=== PATIENT | male | born 1940 | race Caucasian/White ===

== ENCOUNTER 2016-07-30 11:24 | Day surgery (SDC) | payer OTHER ==
[2016-07-26 10:40] VITALS: BMI 25.2
[2016-07-30 13:43] VITALS: TEMP 97.7
[2016-07-30 13:46] VITALS: BP 104/65; PULSE 52
--- NOTE | 2016-07-31 12:16 | PATH ---
Surgical Pathology Report Patient Name: DENITA ALATORRE [facility]. Rec. #: [id number] /Age/Gender: 1940 (Age: 75) / M Account: [id number] Location: [facility] Taken: 07/30/2016 Received: 07/30/2016 Reported: 07/31/2016 Physicians: Ayush Crawford M.D. Specimen(s) Received A: BX DUODENUM B: BX ANTRUM C: BX RIGHT COLON D: BX LEFT COLON Clinical History GI bleed Rule out celiac disease, gastritis, colonic polyps Final Diagnosis A. DUODENUM, BIOPSY: DUODENAL MUCOSA WITH NO PATHOLOGIC CHANGES. NO HISTOLOGIC EVIDENCE OF GLUTEN SENSITIVE ENTEROPATHY (CELIAC SPRUE) IDENTIFIED. B. STOMACH, ANTRUM, BIOPSY: GASTRIC ANTRAL MUCOSA WITH NO PATHOLOGIC CHANGES. IMMUNOSTAIN FOR H. PYLORI IS NEGATIVE. C. COLON, RIGHT, BIOPSY: TUBULAR ADENOMA. D. COLON, LEFT, BIOPSY: TUBULAR ADENOMA. Electronically Signed Kahlil Real M.D. Gross Description A. Received in formalin, labeled "duodenum" are 2 rose, irregular portions of soft tissue averaging 0.3 cm. in greatest dimension. The specimens are submitted in toto in one cassette. B. Received in formalin, labeled "antrum" are 2 rose, irregular portions of soft tissue averaging 0.3 cm. in greatest dimension. The specimens are submitted in toto in one cassette. C. Received in formalin, labeled "right colon" are 3 rose, irregular portions of soft tissue ranging from 0.1-0.3 cm. in greatest dimension. The specimens are submitted in toto in one cassette. D. Received in formalin, labeled "left colon" is a rose, irregular portion of soft tissue measuring 0.3 cm. in greatest dimension. The specimen is submitted in toto in one cassette. 07/30/2016 saudi07/30/2016
== END 2016-07-30 13:40 | disposition home or self-care (01) ==
LOC: FASU 11:24
PROVIDERS: ATTEND Internal Medicine Gastroenterology
PROC: 0DB98ZX Excision of Duodenum, Via Natural or Artificial Opening Endoscopic, Diagnostic (ICD-10-PCS; 2016-07-30)
PROC: 0DB68ZX Excision of Stomach, Via Natural or Artificial Opening Endoscopic, Diagnostic (ICD-10-PCS; 2016-07-30)
PROC: 0DBK8ZX Excision of Ascending Colon, Via Natural or Artificial Opening Endoscopic, Diagnostic (ICD-10-PCS; principal; 2016-07-30 12:25)
PROC: 0DBM8ZX Excision of Descending Colon, Via Natural or Artificial Opening Endoscopic, Diagnostic (ICD-10-PCS; 2016-07-30 12:25)
DX: D12.2 Benign neoplasm of ascending colon (principal); D12.4 Benign neoplasm of descending colon; K57.30 Diverticulosis of large intestine without perforation or abscess without bleeding; K29.70 Gastritis, unspecified, without bleeding
CPT/HCPCS: 88305-TC; 88342-TC

== ENCOUNTER 2022-10-03 07:53 | Day surgery (SDC) | payer OTHER ==
[2022-10-01 15:37] VITALS: BMI 26.3
[2022-10-03 09:31] VITALS: RESP 20; TEMP 97
[2022-10-03 09:50] VITALS: BP 112/68; PULSE 52
== END 2022-10-03 09:35 | disposition home or self-care (01) ==
LOC: FASU-ENDO 07:53
PROVIDERS: ATTEND Internal Medicine Gastroenterology
PROC: 0DBK8ZX Excision of Ascending Colon, Via Natural or Artificial Opening Endoscopic, Diagnostic (ICD-10-PCS; principal; 2022-10-03 08:43)
DX: Z12.11 Encounter for screening for malignant neoplasm of colon (principal); D12.2 Benign neoplasm of ascending colon; K57.30 Diverticulosis of large intestine without perforation or abscess without bleeding; Z86.010 Personal history of colon polyps

== ENCOUNTER 2022-12-07 08:59 | Emergency (ER) | payer OTHER ==
[2022-12-07] MEDS ORDERED: SODIUM CHLORIDE 1,000 ML IV SCH (09:30)
[2022-12-07 09:32] VITALS: BMI 28.8
[2022-12-07] MEDS ORDERED: [UNRECOGNIZED DRUG - OTHER] IVPB ONE (09:53)
[2022-12-07 10:05] LABS: BASO % 0.4 % (0-2.0); EOS % 2.4 % (0-4.5); HEMATOCRIT 42.7 % (35.4-49); HEMOGLOBIN 14.2 GM/dL (11.7-16.9); LYMPH % 11.8 % (8-40); MCH 30.2 pg (25.7-33.7); MCHC 33.2 g/dl (32.0-35.9); MEAN CELL VOLUME 90.7 fl (80-96); MEAN PLT VOLUME 7.9 fl (7.5-11.1); MONO % 7.1 % (3.8-10.2); NEUT % 78.3 % (42.8-82.8); PLATELET COUNT 153 10^3/uL (134-434); RBC 4.71 M/mm3 (4.00-5.60); RDW 14.7 % (11.9-15.9); WHITE BLOOD COUNT 7.2 K/mm3 (4.0-10.0)
[2022-12-07 10:11] LABS: INR 1.24 (0.83-1.09); PROTHROMBIN TIME (PATIENT) 14.4 SEC (9.7-13.0)
[2022-12-07 10:13] LABS: ACTIVATED PTT 29.5 SECONDS (25.2-36.5)
[2022-12-07 10:22] LABS: ALBUMIN 3.8 g/dl (3.4-5.0); CALCIUM 8.7 mg/dL (8.5-10.1)
[2022-12-07 10:24] LABS: BLOOD UREA NITROGEN 39.8 mg/dL (7-18)
[2022-12-07] MEDS ORDERED: SODIUM CHLORIDE 50 ML IVPB ONE ×2 (10:25→11:55)
[2022-12-07 10:26] LABS: CREATININE 2.2 mg/dL (0.55-1.3)
[2022-12-07 10:27] LABS: TOT PROT 6.9 g/dl (6.4-8.2)
[2022-12-07 10:29] LABS: BILIRUBIN,TOTAL 0.6 mg/dL (0.2-1)
[2022-12-07] MEDS ORDERED: [UNRECOGNIZED DRUG - OTHER] IVPB ONE (10:35)
[2022-12-07 11:12] VITALS: BP 136/77
[2022-12-07 11:27] VITALS: PULSE 66; RESP 11; TEMP 98.6
== END 2022-12-07 12:47 | disposition short-term general hospital (02) ==
LOC: JER 08:59
PROC: 3E033GC Introduction of Other Therapeutic Substance into Peripheral Vein, Percutaneous Approach (ICD-10-PCS; principal; 2022-12-07)
DX: R41.82 Altered mental status, unspecified (principal); I61.9 Nontraumatic intracerebral hemorrhage, unspecified; Z20.822 Contact with and (suspected) exposure to COVID-19
CPT/HCPCS: 0241U-QW; 36415; 70450-TC; 80053; 80061; 82550; 82553; 82962; 83036; 84484; 85025; 85610; 85730; 86850; 86900; 86901; 93005; 93010; 99291; J7169

== ENCOUNTER 2023-01-27 10:56 | Emergency (ER) | payer OTHER ==
[2023-01-27 11:02] VITALS: RESP 18; TEMP 97.3; BMI 25.0
[2023-01-27] MEDS ORDERED: SODIUM CHLORIDE 1,000 ML IV SCH (11:15)
[2023-01-27 12:05] LABS: BASO % 0.6 % (0-2.0); EOS % 0.9 % (0-4.5); HEMATOCRIT 31.6 % (35.4-49); HEMOGLOBIN 10.3 GM/dL (11.7-16.9); LYMPH % 9.2 % (8-40); MCH 29.6 pg (25.7-33.7); MCHC 32.7 g/dl (32.0-35.9); MEAN CELL VOLUME 90.6 fl (80-96); MEAN PLT VOLUME 7.7 fl (7.5-11.1); MONO % 10.1 % (3.8-10.2); NEUT % 79.2 % (42.8-82.8); PLATELET COUNT 203 10^3/uL (134-434); RBC 3.49 M/mm3 (4.00-5.60); RDW 16.1 % (11.9-15.9); WHITE BLOOD COUNT 3.4 K/mm3 (4.0-10.0)
[2023-01-27 12:13] LABS: INR 1.18 (0.83-1.09); PROTHROMBIN TIME (PATIENT) 13.7 SEC (9.7-13.0)
[2023-01-27 12:16] LABS: ACTIVATED PTT 24.4 SECONDS (25.2-36.5)
[2023-01-27 12:32] LABS: CHLORIDE 107 mmol/L (98-107); SODIUM 129 mmol/L (136-145)
[2023-01-27 12:33] LABS: CALCIUM 8.7 mg/dL (8.5-10.1); CO2 17 mmol/L (21-32)
[2023-01-27 12:34] LABS: ALBUMIN 3.1 g/dl (3.4-5.0)
[2023-01-27 12:35] LABS: BLOOD UREA NITROGEN 48.4 mg/dL (7-18); GLUCOSE,RANDOM 92 mg/dL (74-106)
[2023-01-27 12:37] LABS: EPI CELLS 11 /uL (0-25.1); HYALINE CASTS 14 /uL (0-3.1); PH,URINE 6.5 (5.0-8.0); URINE APPEARANCE TURBID; URINE BACTERIA >9,000 /uL (0-1359); URINE BILIRUBIN NEGATIVE (NEGATIVE); URINE COLOR YELLOW; URINE GLUCOSE (UA) NEGATIVE (NEGATIVE); URINE KETONE NEGATIVE (NEGATIVE); URINE LEUK ESTERASE 3+ (NEGATIVE); URINE NITRITE POSITIVE (NEGATIVE); URINE PROTEIN TRACE (NEGATIVE); URINE RBC 19 /uL (0-23.9); URINE UROBILINOGEN 0.2 mg/dL (0.2-1.0); URINE WBC 1335 /uL (0-25.8)
[2023-01-27 12:37] LABS: CREATININE 2.9 mg/dL (0.55-1.3); SGOT/AST 82 U/L (15-37)
[2023-01-27 12:38] LABS: CHOLESTEROL 161 mg/dL (50-200); TOT PROT 7.2 g/dl (6.4-8.2)
[2023-01-27 12:39] LABS: LDL CHOLESTEROL (ONLY SJRH) 49 mg/dL (5-100)
[2023-01-27 12:40] LABS: BILIRUBIN,TOTAL 0.3 mg/dL (0.2-1)
[2023-01-27 12:41] LABS: ALK PHOS 157 U/L (45-117); HDL CHOLESTEROL 62 mg/dL (40-60)
[2023-01-27 12:55] LABS: YEAST NEGATIVE (NEGATIVE)
[2023-01-27 13:17] LABS: ANION GAP 5 mmol/L (4-13); POTASSIUM 7.1 mmol/L (3.5-5.1); SGPT/ALT 55 U/L (13-61)
[2023-01-27] MEDS ORDERED: PIPERACILLIN/TAZOB 4.5 GM 4.5 GM in DEXTROSE 5%-WATER 100 ML IVPB ONE (13:22)
[2023-01-27 14:16] LABS: CALCIUM 8.6 mg/dL (8.5-10.1)
[2023-01-27 14:20] LABS: CREATININE 2.7 mg/dL (0.55-1.3)
[2023-01-27 14:28] LABS: BLOOD UREA NITROGEN 45.2 mg/dL (7-18)
[2023-01-27 15:45] VITALS: BP 119/67; PULSE 63
== END 2023-01-27 15:48 | disposition home or self-care (01) ==
LOC: JER 10:56
DX: H57.89 Other specified disorders of eye and adnexa (principal); R51.9 Headache, unspecified; N39.0 Urinary tract infection, site not specified; R46.89 Other symptoms and signs involving appearance and behavior; R41.0 Disorientation, unspecified
CPT/HCPCS: 36415; 70450-TC; 80048; 80053; 80061; 81003; 82010; 82550; 82553; 83036; 83605; 84484; 85025; 85610; 85730; 87086; 93005; 93010; 99285-25

== ENCOUNTER 2023-03-18 13:59 | Inpatient (IN) | payer OTHER ==
[2023-03-18 16:47] LABS: EPI CELLS >36 /uL (0-25.1); HYALINE CASTS 42 /uL (0-3.1); URINE APPEARANCE CLOUDY; URINE BACTERIA 78 /uL (0-1359); URINE BILIRUBIN NEGATIVE (NEGATIVE); URINE COLOR YELLOW; URINE GLUCOSE (UA) NEGATIVE (NEGATIVE); URINE KETONE NEGATIVE (NEGATIVE); URINE LEUK ESTERASE 1+ (NEGATIVE); URINE NITRITE NEGATIVE (NEGATIVE); URINE PROTEIN 1+ (NEGATIVE); URINE RBC 32 /uL (0-23.9); URINE UROBILINOGEN 0.2 mg/dL (0.2-1.0); URINE WBC 84 /uL (0-25.8)
[2023-03-18 18:07] LABS: BASO % 0.7 % (0-2.0); EOS % 2.1 % (0-4.5); HEMOGLOBIN 7.9 GM/dL (11.7-16.9); LYMPH % 16.4 % (8-40); MCH 29.8 pg (25.7-33.7); MCHC 32.8 g/dl (32.0-35.9); MEAN CELL VOLUME 90.9 fl (80-96); MEAN PLT VOLUME 7.7 fl (7.5-11.1); MONO % 7.6 % (3.8-10.2); NEUT % 73.2 % (42.8-82.8); PLATELET COUNT 160 10^3/uL (134-434); RBC 2.64 M/mm3 (4.00-5.60); RDW 16.2 % (11.9-15.9); WHITE BLOOD COUNT 5.6 K/mm3 (4.0-10.0)
[2023-03-18 18:17] LABS: INR 1.3 (0.83-1.09)
[2023-03-18 18:19] LABS: ACTIVATED PTT 26.7 SECONDS (25.2-36.5)
[2023-03-18 18:29] LABS: ALBUMIN 2.9 g/dl (3.4-5.0); BLOOD UREA NITROGEN 40.3 mg/dL (7-18); CALCIUM 8.6 mg/dL (8.5-10.1)
[2023-03-18 18:32] LABS: CREATININE 3.1 mg/dL (0.55-1.3)
[2023-03-18 18:34] LABS: BILIRUBIN,TOTAL 0.4 mg/dL (0.2-1); TOT PROT 6.5 g/dl (6.4-8.2)
[2023-03-18] MEDS ORDERED: QUEtiapine FUMARATE 25 MG TABLET PO PRN (22:55)
[2023-03-18] MEDS ORDERED: ACETAMINOPHEN 325 MG TABLET (FP) PO PRN (22:55)
[2023-03-18] MEDS ORDERED: BISACODYL 10 MG SUPP.RECT PR PRN (22:55)
[2023-03-18] MEDS ORDERED: MELATONIN 5 MG TABLETS ONE (23:05)
[2023-03-18] MEDS ORDERED: TAMSULOSIN HCL 0.4 MG CAP ONE (23:06)
[2023-03-18] MEDS ORDERED: GABAPENTIN 100 MG CAPSULE ONE (23:06)
[2023-03-19] MEDS: SODIUM CHLORIDE 1,000 ML IV SCH (01:54)
[2023-03-19] MEDS ORDERED: MELATONIN 5 MG TABLETS ONE (01:59)
[2023-03-19] MEDS: LEVOTHYROXINE NA 50 MCG TABLET (FP) PO SCH (06:52)
[2023-03-19 07:28] LABS: POTASSIUM 3.8 mmol/L (3.5-5.1)
[2023-03-19 07:31] LABS: ALBUMIN 2.9 g/dl (3.4-5.0); BLOOD UREA NITROGEN 38.6 mg/dL (7-18); CALCIUM 8.5 mg/dL (8.5-10.1); MAGNESIUM 1.5 mg/dL (1.8-2.4)
[2023-03-19 07:33] LABS: PHOSPHOROUS 3.6 mg/dL (2.5-4.9)
[2023-03-19 07:34] LABS: CREATININE 2.7 mg/dL (0.55-1.3)
[2023-03-19 07:35] LABS: BILIRUBIN,TOTAL 0.5 mg/dL (0.2-1); TOT PROT 6.4 g/dl (6.4-8.2)
[2023-03-19 07:42] LABS: EOS % 2.9 % (0-4.5); HEMATOCRIT 22.7 % (35.4-49); HEMOGLOBIN 7.6 GM/dL (11.7-16.9); LYMPH % 20.9 % (8-40); MCH 30.1 pg (25.7-33.7); MCHC 33.4 g/dl (32.0-35.9); MEAN CELL VOLUME 90.1 fl (80-96); MEAN PLT VOLUME 7.7 fl (7.5-11.1); MONO % 8.1 % (3.8-10.2); NEUT % 67.1 % (42.8-82.8); PLATELET COUNT 162 10^3/uL (134-434); RBC 2.51 M/mm3 (4.00-5.60); RETICULOCYTES 0.85 % (0.5-1.5); WHITE BLOOD COUNT 5.1 K/mm3 (4.0-10.0)
[2023-03-19] MEDS: ENOXAPARIN NA (PORCINE) 30 MG/0.3 ML DISP.SYRIN SQ SCH (09:58)
[2023-03-19] MEDS: TAMSULOSIN HCL 0.4 MG CAP PO SCH (09:58)
[2023-03-19] MEDS ORDERED: ENOXAPARIN NA (PORCINE) 40 MG/0.4 ML DISP.SYRIN SQ SCH (10:00)
[2023-03-19] MEDS ORDERED: MELATONIN 1 MG TABLET PO SCH (22:00)
[2023-03-19] MEDS: MELATONIN 1 MG TABLET PO SCH (22:52)
[2023-03-19] MEDS: GABAPENTIN 100 MG CAPSULE PO SCH (22:53)
[2023-03-20] MEDS: QUEtiapine FUMARATE 25 MG TABLET PO SCH (00:23)
[2023-03-20 07:18] LABS: BASO % 0.7 % (0-2.0); EOS % 3.1 % (0-4.5); HEMATOCRIT 22.9 % (35.4-49); HEMOGLOBIN 7.4 GM/dL (11.7-16.9); LYMPH % 23.2 % (8-40); MCH 29.7 pg (25.7-33.7); MCHC 32.3 g/dl (32.0-35.9); MEAN CELL VOLUME 92.1 fl (80-96); MEAN PLT VOLUME 7.9 fl (7.5-11.1); MONO % 9.1 % (3.8-10.2); NEUT % 63.9 % (42.8-82.8); PLATELET COUNT 167 10^3/uL (134-434); RBC 2.48 M/mm3 (4.00-5.60); RDW 16.2 % (11.9-15.9); WHITE BLOOD COUNT 4.5 K/mm3 (4.0-10.0)
[2023-03-20 07:33] LABS: POTASSIUM 4.2 mmol/L (3.5-5.1)
[2023-03-20 07:46] LABS: CALCIUM 8.3 mg/dL (8.5-10.1)
[2023-03-20 07:47] LABS: BLOOD UREA NITROGEN 37.7 mg/dL (7-18)
[2023-03-20 07:50] LABS: CREATININE 2.4 mg/dL (0.55-1.3)
[2023-03-20] MEDS: MAGNESIUM 1GM/D5W - 1 GM/100 ML IVPB IVPB ONE (18:11)
[2023-03-21 21:29] VITALS: BMI 22.4
[2023-03-22 07:27] LABS: BASO % 0.8 % (0-2.0); EOS % 3.6 % (0-4.5); HEMATOCRIT 23.8 % (35.4-49); HEMOGLOBIN 7.7 GM/dL (11.7-16.9); LYMPH % 26.7 % (8-40); MCH 29.5 pg (25.7-33.7); MCHC 32.1 g/dl (32.0-35.9); MEAN CELL VOLUME 91.9 fl (80-96); MEAN PLT VOLUME 7.7 fl (7.5-11.1); MONO % 8.1 % (3.8-10.2); NEUT % 60.8 % (42.8-82.8); PLATELET COUNT 206 10^3/uL (134-434); RBC 2.59 M/mm3 (4.00-5.60); RDW 16.2 % (11.9-15.9); WHITE BLOOD COUNT 5.2 K/mm3 (4.0-10.0)
[2023-03-22 07:34] LABS: POTASSIUM 4.1 mmol/L (3.5-5.1)
[2023-03-22 07:45] LABS: CALCIUM 8.5 mg/dL (8.5-10.1)
[2023-03-22 07:46] LABS: BLOOD UREA NITROGEN 38.6 mg/dL (7-18)
[2023-03-22 07:49] LABS: CREATININE 2.2 mg/dL (0.55-1.3)
[2023-03-22 12:10] LABS: EPI CELLS 7 /uL (0-25.1); HYALINE CASTS 1 /uL (0-3.1); URINE APPEARANCE CLEAR; URINE BACTERIA 138 /uL (0-1359); URINE BILIRUBIN NEGATIVE (NEGATIVE); URINE COLOR YELLOW; URINE GLUCOSE (UA) NEGATIVE (NEGATIVE); URINE KETONE NEGATIVE (NEGATIVE); URINE LEUK ESTERASE TRACE (NEGATIVE); URINE NITRITE NEGATIVE (NEGATIVE); URINE PROTEIN NEGATIVE (NEGATIVE); URINE RBC 18 /uL (0-23.9); URINE UROBILINOGEN 0.2 mg/dL (0.2-1.0); URINE WBC 31 /uL (0-25.8)
[2023-03-22] MEDS: TAMSULOSIN HCL 0.4 MG CAP PO SCH (22:03)
[2023-03-23 07:19] LABS: BASO % 0.8 % (0-2.0); EOS % 3.6 % (0-4.5); HEMATOCRIT 23.7 % (35.4-49); HEMOGLOBIN 7.7 GM/dL (11.7-16.9); MCH 29.8 pg (25.7-33.7); MCHC 32.5 g/dl (32.0-35.9); MEAN CELL VOLUME 91.7 fl (80-96); MEAN PLT VOLUME 7.3 fl (7.5-11.1); MONO % 7.5 % (3.8-10.2); NEUT % 68.1 % (42.8-82.8); PLATELET COUNT 210 10^3/uL (134-434); POTASSIUM 3.8 mmol/L (3.5-5.1); RBC 2.58 M/mm3 (4.00-5.60); RDW 16.3 % (11.9-15.9); WHITE BLOOD COUNT 5.4 K/mm3 (4.0-10.0)
[2023-03-23 07:20] LABS: BLOOD UREA NITROGEN 31.3 mg/dL (7-18); CALCIUM 8.9 mg/dL (8.5-10.1)
[2023-03-23] MEDS ORDERED: ACETAMINOPHEN 325 MG TABLET (FP) PO PRN (18:36)
[2023-03-24] MEDS: levETIRAcetam 500 MG/5 ML INJECTION VIAL IVPB ONE (05:00)
[2023-03-24 06:46] LABS: ARTERIAL BLOOD GAS BASE EXCESS -13.1 mmol/L (-2-2); ARTERIAL BLOOD GAS PO2 178.5 mmHg (80-100); ARTERIAL BLOOD GAS pH 7.253 (7.350-7.450)
[2023-03-24 07:02] LABS: HEMOGLOBIN 8.1 GM/dL (11.7-16.9); MCHC 32.3 g/dl (32.0-35.9); MEAN PLT VOLUME 7.3 fl (7.5-11.1); PLATELET COUNT 226 10^3/uL (134-434); RBC 2.69 M/mm3 (4.00-5.60); RDW 16.5 % (11.9-15.9); WHITE BLOOD COUNT 8.6 K/mm3 (4.0-10.0)
[2023-03-24] MEDS ORDERED: ACETAMINOPHEN 325 MG TABLET (FP) PO PRN (07:10)
[2023-03-24] MEDS ORDERED: BISACODYL 10 MG SUPP.RECT PR PRN (07:10)
[2023-03-24 07:18] LABS: POTASSIUM 4.3 mmol/L (3.5-5.1)
[2023-03-24 07:25] LABS: ALBUMIN 2.9 g/dl (3.4-5.0); CALCIUM 8.9 mg/dL (8.5-10.1)
[2023-03-24 07:26] LABS: BLOOD UREA NITROGEN 32.8 mg/dL (7-18); MAGNESIUM 1.6 mg/dL (1.8-2.4)
[2023-03-24 07:28] LABS: CREATININE 2.6 mg/dL (0.55-1.3); PHOSPHOROUS 2.9 mg/dL (2.5-4.9)
[2023-03-24 07:30] LABS: BILIRUBIN,TOTAL 0.2 mg/dL (0.2-1); TOT PROT 6.2 g/dl (6.4-8.2)
[2023-03-24] MEDS: MUPIROCIN 2% TOPICAL OINTMENT FOR DECOLONIZATION NS SCH ×2 (11:24→21:14)
[2023-03-24] MEDS: LEVOTHYROXINE SODIUM 100 MCG 5 ML VIAL IVPUSH SCH (11:25)
[2023-03-24] MEDS: SODIUM CHLORIDE 0.45% 1,000 ML IV SCH (14:44)
[2023-03-24] MEDS ORDERED: levETIRAcetam 500 MG/5 ML INJECTION VIAL IVPB SCH (17:00)
[2023-03-24] MEDS: levETIRAcetam 500 MG/5 ML INJECTION VIAL IVPB SCH (21:13)
[2023-03-24] MEDS: CHLORHEXIDINE GLUCONATE 4% CLEANSER FOR DECOLONIZATION TP SCH (21:14)
[2023-03-24] MEDS ORDERED: QUEtiapine FUMARATE 25 MG TABLET PO SCH (22:00)
[2023-03-24] MEDS ORDERED: CHLORHEXIDINE GLUCONATE 4% CLEANSER FOR DECOLONIZATION TP SCH (22:00)
[2023-03-24] MEDS ORDERED: MELATONIN 1 MG TABLET PO SCH (22:00)
[2023-03-25] MEDS ORDERED: LEVOTHYROXINE NA 50 MCG TABLET (FP) PO SCH (07:00)
[2023-03-25] MEDS ORDERED: ACETAMINOPHEN 325 MG TABLET (FP) PO PRN ×2 (07:25→15:10)
[2023-03-25 08:24] LABS: BASO % 0.5 % (0-2.0); EOS % 1.7 % (0-4.5); HEMATOCRIT 25.9 % (35.4-49); HEMOGLOBIN 8.6 GM/dL (11.7-16.9); LYMPH % 11.8 % (8-40); MCH 30.7 pg (25.7-33.7); MEAN CELL VOLUME 92.9 fl (80-96); MEAN PLT VOLUME 7.7 fl (7.5-11.1); PLATELET COUNT 204 10^3/uL (134-434); RBC 2.79 M/mm3 (4.00-5.60)
[2023-03-25 08:26] LABS: INR 1.22 (0.83-1.09); PROTHROMBIN TIME (PATIENT) 14.1 SEC (9.7-13.0)
[2023-03-25 08:35] LABS: POTASSIUM 4.1 mmol/L (3.5-5.1)
[2023-03-25 08:41] LABS: BLOOD UREA NITROGEN 31.6 mg/dL (7-18); MAGNESIUM 1.8 mg/dL (1.8-2.4)
[2023-03-25 08:43] LABS: PHOSPHOROUS 2.9 mg/dL (2.5-4.9)
[2023-03-25 08:44] LABS: CREATININE 2.3 mg/dL (0.55-1.3)
[2023-03-25 08:45] LABS: BILIRUBIN,TOTAL 0.6 mg/dL (0.2-1); TOT PROT 6.7 g/dl (6.4-8.2)
[2023-03-25] MEDS: levETIRAcetam 500 MG/5 ML INJECTION VIAL IVPB SCH ×2 (10:31→21:42)
[2023-03-25] MEDS: LEVOTHYROXINE SODIUM 100 MCG 5 ML VIAL IVPUSH SCH (10:32)
[2023-03-25] MEDS ORDERED: SODIUM CHLORIDE 0.45% 1,000 ML IV SCH (15:10)
[2023-03-25] MEDS ORDERED: MUPIROCIN 2% TOPICAL OINTMENT FOR DECOLONIZATION NS SCH (22:00)
[2023-03-25] MEDS ORDERED: CHLORHEXIDINE GLUCONATE 4% CLEANSER FOR DECOLONIZATION TP SCH (22:00)
[2023-03-25] MEDS: MELATONIN 5 MG TABLETS PO ONE (23:26)
[2023-03-26] MEDS: LEVOTHYROXINE SODIUM 100 MCG 5 ML VIAL IVPUSH SCH (06:08)
[2023-03-26 10:54] LABS: BASO % 0.4 % (0-2.0); EOS % 2.2 % (0-4.5); HEMATOCRIT 22.4 % (35.4-49); HEMOGLOBIN 7.3 GM/dL (11.7-16.9); LYMPH % 12.4 % (8-40); MCH 29.8 pg (25.7-33.7); MCHC 32.7 g/dl (32.0-35.9); MEAN CELL VOLUME 91.2 fl (80-96); MONO % 6.4 % (3.8-10.2); NEUT % 78.6 % (42.8-82.8); PLATELET COUNT 178 10^3/uL (134-434); RBC 2.46 M/mm3 (4.00-5.60); WHITE BLOOD COUNT 5.1 K/mm3 (4.0-10.0)
[2023-03-26 11:01] LABS: INR 1.26 (0.83-1.09); PROTHROMBIN TIME (PATIENT) 14.6 SEC (9.7-13.0)
[2023-03-26 11:16] LABS: POTASSIUM 3.7 mmol/L (3.5-5.1)
[2023-03-26 11:20] LABS: CALCIUM 8.4 mg/dL (8.5-10.1)
[2023-03-26 11:21] LABS: ALBUMIN 2.8 g/dl (3.4-5.0); BLOOD UREA NITROGEN 30.3 mg/dL (7-18); MAGNESIUM 1.5 mg/dL (1.8-2.4)
[2023-03-26 11:24] LABS: CREATININE 2.2 mg/dL (0.55-1.3); PHOSPHOROUS 3.1 mg/dL (2.5-4.9)
[2023-03-26 11:25] LABS: BILIRUBIN,TOTAL 0.4 mg/dL (0.2-1); TOT PROT 5.8 g/dl (6.4-8.2)
[2023-03-26] MEDS: MAGNESIUM SULFATE IN WATER 2 GM/50 ML IVPB IVPB ONE (12:48)
[2023-03-27 09:09] LABS: BASO % 0.6 % (0-2.0); EOS % 2.2 % (0-4.5); HEMATOCRIT 24.3 % (35.4-49); LYMPH % 13.9 % (8-40); MCH 30.1 pg (25.7-33.7); MCHC 32.8 g/dl (32.0-35.9); MEAN CELL VOLUME 91.8 fl (80-96); MEAN PLT VOLUME 7.2 fl (7.5-11.1); NEUT % 75.3 % (42.8-82.8); PLATELET COUNT 188 10^3/uL (134-434); RBC 2.64 M/mm3 (4.00-5.60); RDW 16.3 % (11.9-15.9); WHITE BLOOD COUNT 6.3 K/mm3 (4.0-10.0)
[2023-03-27 09:13] LABS: INR 1.24 (0.83-1.09); PROTHROMBIN TIME (PATIENT) 14.4 SEC (9.7-13.0)
[2023-03-27 09:43] LABS: CALCIUM 8.2 mg/dL (8.5-10.1)
[2023-03-27 09:44] LABS: ALBUMIN 2.9 g/dl (3.4-5.0); BLOOD UREA NITROGEN 28.1 mg/dL (7-18); MAGNESIUM 1.8 mg/dL (1.8-2.4)
[2023-03-27 09:47] LABS: PHOSPHOROUS 3.3 mg/dL (2.5-4.9)
[2023-03-27 09:48] LABS: BILIRUBIN,TOTAL 0.5 mg/dL (0.2-1)
[2023-03-27 09:49] LABS: TOT PROT 6.1 g/dl (6.4-8.2)
[2023-03-28 09:13] LABS: BASO % 0.8 % (0-2.0); EOS % 2.7 % (0-4.5); HEMATOCRIT 22.8 % (35.4-49); HEMOGLOBIN 7.4 GM/dL (11.7-16.9); LYMPH % 16.6 % (8-40); MCH 29.6 pg (25.7-33.7); MCHC 32.6 g/dl (32.0-35.9); MEAN CELL VOLUME 90.7 fl (80-96); MEAN PLT VOLUME 7.5 fl (7.5-11.1); MONO % 9.2 % (3.8-10.2); NEUT % 70.7 % (42.8-82.8); PLATELET COUNT 167 10^3/uL (134-434); RBC 2.52 M/mm3 (4.00-5.60); RDW 16.3 % (11.9-15.9); WHITE BLOOD COUNT 5.6 K/mm3 (4.0-10.0)
[2023-03-28 09:16] LABS: INR 1.29 (0.83-1.09); PROTHROMBIN TIME (PATIENT) 14.9 SEC (9.7-13.0)
[2023-03-28 09:41] LABS: POTASSIUM 4.4 mmol/L (3.5-5.1)
[2023-03-28 09:55] LABS: CALCIUM 8.7 mg/dL (8.5-10.1)
[2023-03-28 09:56] LABS: ALBUMIN 2.7 g/dl (3.4-5.0); BLOOD UREA NITROGEN 31.6 mg/dL (7-18); MAGNESIUM 1.7 mg/dL (1.8-2.4)
[2023-03-28 09:58] LABS: PHOSPHOROUS 3.8 mg/dL (2.5-4.9)
[2023-03-28 09:59] LABS: CREATININE 2.2 mg/dL (0.55-1.3)
[2023-03-28 10:00] LABS: BILIRUBIN,TOTAL 0.4 mg/dL (0.2-1)
[2023-03-28 10:04] LABS: TOT PROT 5.7 g/dl (6.4-8.2)
[2023-03-28 10:25] VITALS: BP 116/56; PULSE 83; RESP 18; TEMP 97.6
[2023-03-28] MEDS: MAGNESIUM 1GM/D5W - 1 GM/100 ML IVPB IVPB ONE (11:42)
== END 2023-03-28 14:20 | disposition short-term general hospital (02) | DRG 698 ==
LOC: JER 13:59 → JERBED 19:48 → OBSVTOIN 19:48 → INTOOBSV 19:48 → J4W 03-19 02:27 → JICU 03-24 06:54 → J4S 03-25 15:35
PROVIDERS: ADMIT Internal Medicine; ATTEND Nurse Practitioner Acute Care
DX: T83.028A Displacement of other urinary catheter, initial encounter (principal); I60.9 Nontraumatic subarachnoid hemorrhage, unspecified; I82.401 Acute embolism and thrombosis of unspecified deep veins of right lower extremity; R47.01 Aphasia; N17.9 Acute kidney failure, unspecified; R64 Cachexia; R33.9 Retention of urine, unspecified; N18.30 Chronic kidney disease, stage 3 unspecified; F03.90 Unspecified dementia, unspecified severity, without behavioral disturbance, psychotic disturbance, mood disturbance, and anxiety; E03.9 Hypothyroidism, unspecified; I12.9 Hypertensive chronic kidney disease with stage 1 through stage 4 chronic kidney disease, or unspecified chronic kidney disease; R56.9 Unspecified convulsions; Y83.9 Surgical procedure, unspecified as the cause of abnormal reaction of the patient, or of later complication, without mention of misadventure at the time of the procedure; Z68.22 Body mass index [BMI] 22.0-22.9, adult
CPT/HCPCS: 36415; 36600; 70450-TC; 70544-TC; 70551-TC; 80048; 80053; 80177; 81003; 82607; 82728; 82746; 82803; 82962; 83540; 83550; 83735; 84100; 84443; 85025; 85027; 85045; 85610; 85730; 86140; 87086; 87186; 87635; 93005; 93010; 93970-TC; 97116-GP; 97162-GP; 99285-25

== ENCOUNTER 2023-11-12 01:05 | Inpatient (IN) | payer OTHER ==
[2023-11-12] MEDS: SODIUM CHLORIDE 1,000 ML IV STA ×2 (01:51→02:47)
[2023-11-12 02:05] LABS: EOS % 0.3 % (0-4.5); HEMOGLOBIN 8.8 GM/dL (11.7-16.9); LYMPH % 2.9 % (8-40); MCH 30.7 pg (25.7-33.7); MCHC 31.6 g/dl (32.0-35.9); MEAN CELL VOLUME 97.1 fl (80-96); MEAN PLT VOLUME 9.2 fl (7.5-11.1); NEUT % 94.8 % (42.8-82.8); PLATELET COUNT 182 10^3/uL (134-434); RBC 2.88 M/mm3 (4.00-5.60); RDW 21.2 % (11.9-15.9); VENOUS O2 SATURATION 92.3 % (70-80); VENOUS PCO2 31.3 mmHg (38-52); VENOUS PH 7.346 (7.310-7.410); WHITE BLOOD COUNT 18.6 K/mm3 (4.0-10.0)
[2023-11-12] MEDS ORDERED: PIPERACILLIN/TAZOB 3.375 GM 3.375 GM/50 ML BAG IVPB ONE ×4 (02:06→16:26)
[2023-11-12] MEDS ORDERED: VANCOMYCIN 1 GRAM (PRE-DOCKED) 1,000 MG/250 ML BAG IVPB ONE (02:06)
[2023-11-12] MEDS: VANCOMYCIN 1,000 MG in DEXTROSE 5%-WATER - 250 ML IVPB ONE (02:15)
[2023-11-12] MEDS: PIPERACILLIN/TAZOB 3.375 GM 3.375 GM in DEXTROSE 5%-WATER - 50 ML IVPB ONE (02:15)
[2023-11-12 02:17] LABS: INR 1.25 (0.83-1.09); PROTHROMBIN TIME (PATIENT) 14.3 SEC (9.7-13.0)
[2023-11-12 02:20] LABS: ACTIVATED PTT 26.6 SECONDS (25.2-36.5)
[2023-11-12 02:23] LABS: CHLORIDE 112 mmol/L (98-107); SODIUM 141 mmol/L (136-145)
[2023-11-12 02:25] LABS: CALCIUM 9.6 mg/dL (8.5-10.1)
[2023-11-12 02:26] LABS: ALBUMIN 2.1 g/dl (3.4-5.0); ANION GAP 11 mmol/L (4-13); CO2 18 mmol/L (21-32); GLUCOSE,RANDOM 151 mg/dL (74-106)
[2023-11-12 02:29] LABS: CREATININE 2.8 mg/dL (0.55-1.3); SGOT/AST 30 U/L (15-37); SGPT/ALT 51 U/L (13-61)
[2023-11-12 02:30] LABS: BILIRUBIN,TOTAL 0.3 mg/dL (0.2-1); TOT PROT 6.2 g/dl (6.4-8.2)
[2023-11-12 02:32] LABS: ALK PHOS 126 U/L (45-117)
[2023-11-12 02:43] LABS: LACTIC ACID 2.1 mmol/L (0.4-2.0)
[2023-11-12 02:44] LABS: BLOOD UREA NITROGEN 230.8 mg/dL (7-18)
[2023-11-12 02:50] LABS: EPI CELLS 27 /uL (0-25.1); HYALINE CASTS 216 /uL (0-3.1); PH,URINE 6.5 (5.0-8.0); URINE APPEARANCE TURBID; URINE BACTERIA 2095 /uL (0-1359); URINE BILIRUBIN NEGATIVE (NEGATIVE); URINE COLOR YELLOW; URINE GLUCOSE (UA) NEGATIVE (NEGATIVE); URINE KETONE NEGATIVE (NEGATIVE); URINE LEUK ESTERASE 3+ (NEGATIVE); URINE NITRITE NEGATIVE (NEGATIVE); URINE PROTEIN 1+ (NEGATIVE); URINE RBC 88 /uL (0-23.9); URINE UROBILINOGEN 0.2 mg/dL (0.2-1.0); URINE WBC 881 /uL (0-25.8)
[2023-11-12 04:00] LABS: ANISOCYTOSIS 2+; MACROCYTOSIS 1+; TEAR DROP CELLS 1+
[2023-11-12 05:42] LABS: ARTERIAL BLD GAS O2 SATURATION 96.3 % (95-98); ARTERIAL BLOOD GAS PO2 82.7 mmHg (80-100); ARTERIAL BLOOD GAS pH 7.388 (7.350-7.450)
[2023-11-12 05:44] LABS: ALLENS TEST POSITIVE
[2023-11-12] MEDS: SODIUM CHLORIDE 0.9% 1000 ML INFUS.BAG IV STA (08:34)
[2023-11-12] MEDS ORDERED: NOREPINEPHRINE BITARTRATE 4 MG/4 ML ML IV ONE (08:37)
[2023-11-12] MEDS: PIPERACILLIN/TAZOB 3.375 GM 3.375 GM in DEXTROSE 5%-WATER - 50 ML IVPB SCH (09:27)
[2023-11-12 10:57] LABS: HEMATOCRIT 25.2 % (35.4-49); HEMOGLOBIN 7.8 GM/dL (11.7-16.9); MCH 30.5 pg (25.7-33.7); MCHC 30.8 g/dl (32.0-35.9); MEAN CELL VOLUME 98.8 fl (80-96); MEAN PLT VOLUME 8.9 fl (7.5-11.1); PLATELET COUNT 176 10^3/uL (134-434); RBC 2.55 M/mm3 (4.00-5.60); RDW 20.9 % (11.9-15.9); WHITE BLOOD COUNT 19.5 K/mm3 (4.0-10.0)
[2023-11-12] MEDS: NOREPINEPHRINE 0.9 % NACL 8 MG/250 ML BAG IVPB SCH (11:06)
[2023-11-12 11:35] LABS: CHLORIDE 117 mmol/L (98-107); POTASSIUM 4.8 mmol/L (3.5-5.1); SODIUM 142 mmol/L (136-145)
[2023-11-12 11:42] LABS: ALBUMIN 1.9 g/dl (3.4-5.0)
[2023-11-12 11:43] LABS: ANION GAP 9 mmol/L (4-13); CALCIUM 8.7 mg/dL (8.5-10.1); CO2 17 mmol/L (21-32); GLUCOSE,RANDOM 131 mg/dL (74-106); MAGNESIUM 2.7 mg/dL (1.8-2.4)
[2023-11-12 11:46] LABS: CREATININE 2.4 mg/dL (0.55-1.3); SGOT/AST 27 U/L (15-37); SGPT/ALT 45 U/L (13-61)
[2023-11-12 11:47] LABS: BILIRUBIN,TOTAL 0.4 mg/dL (0.2-1); PHOSPHOROUS 4.4 mg/dL (2.5-4.9); TOT PROT 5.9 g/dl (6.4-8.2)
[2023-11-12 11:49] LABS: ALK PHOS 121 U/L (45-117)
[2023-11-12 11:52] LABS: N-TERMINAL BNP 444.2 pg/ml (5-450)
[2023-11-12 12:02] LABS: BLOOD UREA NITROGEN 197.9 mg/dL (7-18)
[2023-11-12] MEDS: SODIUM CHLORIDE 0.45% 1,000 ML IV SCH (17:55)
[2023-11-12] MEDS: CHLORHEXIDINE GLUCONATE 4% CLEANSER FOR DECOLONIZATION TP SCH (21:39)
[2023-11-12] MEDS: PANTOPRAZOLE SODIUM 40 MG VIAL IVPUSH SCH (21:41)
[2023-11-12] MEDS: MUPIROCIN 2% TOPICAL OINTMENT FOR DECOLONIZATION NS SCH (21:50)
[2023-11-13 06:50] LABS: HEMATOCRIT 27.7 % (35.4-49); HEMOGLOBIN 8.6 GM/dL (11.7-16.9); MCH 30.6 pg (25.7-33.7); MCHC 30.9 g/dl (32.0-35.9); MEAN CELL VOLUME 98.9 fl (80-96); PLATELET COUNT 218 10^3/uL (134-434); WHITE BLOOD COUNT 15.2 K/mm3 (4.0-10.0)
[2023-11-13 06:59] LABS: CHLORIDE 119 mmol/L (98-107); POTASSIUM 4.5 mmol/L (3.5-5.1); SODIUM 145 mmol/L (136-145)
[2023-11-13 07:06] LABS: ALBUMIN 2.1 g/dl (3.4-5.0); CALCIUM 9.3 mg/dL (8.5-10.1)
[2023-11-13 07:07] LABS: ANION GAP 9 mmol/L (4-13); CO2 17 mmol/L (21-32); GLUCOSE,RANDOM 143 mg/dL (74-106); MAGNESIUM 2.9 mg/dL (1.8-2.4)
[2023-11-13 07:10] LABS: CREATININE 2.4 mg/dL (0.55-1.3); PHOSPHOROUS 5.2 mg/dL (2.5-4.9); SGOT/AST 29 U/L (15-37); SGPT/ALT 51 U/L (13-61)
[2023-11-13 07:11] LABS: BILIRUBIN,TOTAL 0.5 mg/dL (0.2-1); TOT PROT 6.7 g/dl (6.4-8.2)
[2023-11-13 07:12] LABS: ALK PHOS 142 U/L (45-117)
[2023-11-13 08:05] LABS: BLOOD UREA NITROGEN 184.9 mg/dL (7-18)
[2023-11-13 09:48] LABS: ANISOCYTOSIS 2+; MACROCYTOSIS 0
[2023-11-13] MEDS: LEVOTHYROXINE NA 75 MCG TABLET (FP) GT SCH (09:56)
[2023-11-13] MEDS: PIPERACILLIN/TAZOB 3.375 GM 3.375 GM in DEXTROSE 5%-WATER - 50 ML IVPB SCH (11:19)
[2023-11-13] MEDS: LACTATED RINGERS SOLUTION 1,000 ML/1,000 ML INFUS.BAG IV STA (11:20)
[2023-11-13] MEDS: ALBUTEROL SO4 2.5/IPRATROPIUM 0.5 INH SOL 3 ML VIAL.NEB. NEB PRN (11:55)
[2023-11-13] MEDS: methylPREDNISolone NA SUCC 40 MG/1 ML VIAL IVPUSH ONE (12:14)
[2023-11-13] MEDS: LACTATED RINGERS SOLUTION 1,000 ML/1,000 ML INFUS.BAG IV SCH ×2 (16:01)
[2023-11-13] MEDS: levETIRAcetam 500 MG/5 ML INJECTION VIAL IVPB ONE (16:58)
[2023-11-13] MEDS ORDERED: BRIVARACETAM GT SCH (22:00)
[2023-11-14 08:29] LABS: HEMOGLOBIN 8.6 GM/dL (11.7-16.9); MCH 31.3 pg (25.7-33.7); MCHC 31.9 g/dl (32.0-35.9); MEAN CELL VOLUME 98.2 fl (80-96); MEAN PLT VOLUME 9.1 fl (7.5-11.1); PLATELET COUNT 213 10^3/uL (134-434); RBC 2.75 M/mm3 (4.00-5.60); RDW 21.3 % (11.9-15.9)
[2023-11-14 09:25] LABS: CHLORIDE 124 mmol/L (98-107); SODIUM 150 mmol/L (136-145)
[2023-11-14 09:29] LABS: ALBUMIN 2.2 g/dl (3.4-5.0); ANION GAP 9 mmol/L (4-13); CO2 17 mmol/L (21-32); GLUCOSE,RANDOM 141 mg/dL (74-106); MAGNESIUM 2.7 mg/dL (1.8-2.4)
[2023-11-14 09:31] LABS: BLOOD UREA NITROGEN 142.6 mg/dL (7-18); SGOT/AST 24 U/L (15-37); SGPT/ALT 48 U/L (13-61)
[2023-11-14 09:32] LABS: BILIRUBIN,TOTAL 0.4 mg/dL (0.2-1); TOT PROT 6.8 g/dl (6.4-8.2)
[2023-11-14 09:33] LABS: CREATININE 2.1 mg/dL (0.55-1.3)
[2023-11-14 09:34] LABS: ALK PHOS 142 U/L (45-117)
[2023-11-14] MEDS: levETIRAcetam 500 MG/5 ML INJECTION VIAL IVPB SCH (09:40)
[2023-11-14] MEDS: methylPREDNISolone NA SUCC 40 MG/1 ML VIAL IVPUSH SCH (09:41)
[2023-11-14 09:56] LABS: ANISOCYTOSIS 1+; MACROCYTOSIS 1+
[2023-11-14] MEDS: DEXTROSE 5%-WATER - 1,000 ML IV SCH (12:40)
[2023-11-14 13:39] VITALS: BMI 23.5
[2023-11-14] MEDS ORDERED: MIDODRINE HCL 5 MG TABLET PO SCH (14:00)
[2023-11-14] MEDS: MEROPENEM 1 GM in DEXTROSE 5%-WATER 100 ML IVPB SCH (15:19)
[2023-11-14] MEDS: MIDODRINE HCL 5 MG, MIDODRINE HCL 2.5 MG PO SCH (15:19)
[2023-11-15 06:43] LABS: ARTERIAL BLOOD GAS BASE EXCESS -7.2 mmol/L (-2-2); ARTERIAL BLOOD GAS PO2 161.8 mmHg (80-100); ARTERIAL BLOOD GAS pH 7.356 (7.350-7.450)
[2023-11-15 06:47] LABS: VENT MODE V-A/C; VENT RATE 14
[2023-11-15 07:45] LABS: INR 1.17 (0.83-1.09); PROTHROMBIN TIME (PATIENT) 13.2 SEC (9.7-13.0)
[2023-11-15 07:55] LABS: EOS % 0.2 % (0-4.5); HEMATOCRIT 25.4 % (35.4-49); LYMPH % 6.7 % (8-40); MCH 31.3 pg (25.7-33.7); MCHC 31.6 g/dl (32.0-35.9); MEAN PLT VOLUME 8.9 fl (7.5-11.1); MONO % 4.9 % (3.8-10.2); NEUT % 88.2 % (42.8-82.8); PLATELET COUNT 202 10^3/uL (134-434); RBC 2.56 M/mm3 (4.00-5.60); RDW 21.4 % (11.9-15.9); WHITE BLOOD COUNT 10.5 K/mm3 (4.0-10.0)
[2023-11-15 08:20] LABS: CHLORIDE 128 mmol/L (98-107); SODIUM 153 mmol/L (136-145)
[2023-11-15 08:22] LABS: CALCIUM 9.2 mg/dL (8.5-10.1)
[2023-11-15 08:24] LABS: ALBUMIN 2.1 g/dl (3.4-5.0); ANION GAP 6 mmol/L (4-13); CO2 19 mmol/L (21-32); GLUCOSE,RANDOM 112 mg/dL (74-106); MAGNESIUM 2.5 mg/dL (1.8-2.4)
[2023-11-15 08:27] LABS: BILIRUBIN,TOTAL 0.2 mg/dL (0.2-1); CREATININE 1.9 mg/dL (0.55-1.3); PHOSPHOROUS 3.6 mg/dL (2.5-4.9); SGOT/AST 27 U/L (15-37); SGPT/ALT 53 U/L (13-61)
[2023-11-15 08:29] LABS: ALK PHOS 122 U/L (45-117); TOT PROT 6.2 g/dl (6.4-8.2)
[2023-11-15 08:33] LABS: ANISOCYTOSIS 1+; MACROCYTOSIS 0
[2023-11-15 08:44] LABS: BLOOD UREA NITROGEN 130.9 mg/dL (7-18)
[2023-11-15] MEDS: VANCOMYCIN/WATER 1250 MG 1,250 MG/250 ML BAG IVPB ONE (14:42)
[2023-11-15] MEDS: ACETAMINOPHEN 1000 MG/100 ML BAG IVPB PRN (18:07)
[2023-11-16 08:53] LABS: HEMATOCRIT 27.2 % (35.4-49); HEMOGLOBIN 8.5 GM/dL (11.7-16.9); MCH 31.4 pg (25.7-33.7); MCHC 31.3 g/dl (32.0-35.9); MEAN CELL VOLUME 100.2 fl (80-96); PLATELET COUNT 222 10^3/uL (134-434); RBC 2.71 M/mm3 (4.00-5.60); RDW 21.9 % (11.9-15.9); WHITE BLOOD COUNT 10.1 K/mm3 (4.0-10.0)
[2023-11-16 09:22] LABS: CHLORIDE 126 mmol/L (98-107); POTASSIUM 4.1 mmol/L (3.5-5.1); SODIUM 151 mmol/L (136-145)
[2023-11-16 09:31] LABS: ALBUMIN 2.3 g/dl (3.4-5.0); CALCIUM 9.2 mg/dL (8.5-10.1)
[2023-11-16 09:32] LABS: ANION GAP 8 mmol/L (4-13); CO2 17 mmol/L (21-32); GLUCOSE,RANDOM 145 mg/dL (74-106); MAGNESIUM 2.4 mg/dL (1.8-2.4)
[2023-11-16 09:34] LABS: BLOOD UREA NITROGEN 112.8 mg/dL (7-18)
[2023-11-16 09:35] LABS: CREATININE 1.8 mg/dL (0.55-1.3); PHOSPHOROUS 2.8 mg/dL (2.5-4.9); SGOT/AST 40 U/L (15-37); SGPT/ALT 73 U/L (13-61)
[2023-11-16] MEDS: MIDODRINE HCL 5 MG TABLET PO SCH (09:35)
[2023-11-16 09:36] LABS: BILIRUBIN,TOTAL 0.3 mg/dL (0.2-1); TOT PROT 6.5 g/dl (6.4-8.2)
[2023-11-16 09:37] LABS: ALK PHOS 140 U/L (45-117)
[2023-11-16 09:38] LABS: ANISOCYTOSIS 2+; MACROCYTOSIS 2+
[2023-11-17 12:15] LABS: HEMATOCRIT 26.7 % (35.4-49); HEMOGLOBIN 8.1 GM/dL (11.7-16.9); MCH 30.5 pg (25.7-33.7); MCHC 30.4 g/dl (32.0-35.9); MEAN CELL VOLUME 100.5 fl (80-96); MEAN PLT VOLUME 8.5 fl (7.5-11.1); PLATELET COUNT 222 10^3/uL (134-434); RBC 2.65 M/mm3 (4.00-5.60); RDW 21.4 % (11.9-15.9); WHITE BLOOD COUNT 12.8 K/mm3 (4.0-10.0)
[2023-11-17] MEDS: VANCOMYCIN/WATER FOR INJ (PEG) 1,000 MG/200 ML BAG IVPB ONE (12:20)
[2023-11-17 12:32] LABS: ALBUMIN 2.2 g/dl (3.4-5.0); BLOOD UREA NITROGEN 91.7 mg/dL (7-18)
[2023-11-17 12:36] LABS: CREATININE 1.4 mg/dL (0.55-1.3)
[2023-11-17 12:37] LABS: BILIRUBIN,TOTAL 0.2 mg/dL (0.2-1); TOT PROT 6.1 g/dl (6.4-8.2)
[2023-11-17 12:40] LABS: ANISOCYTOSIS 2+; MACROCYTOSIS 2+
[2023-11-17] MEDS: SCOPOLAMINE HYDROBROMIDE 1 PATCH PATCH.TD72 TD SCH (21:55)
[2023-11-18 07:28] LABS: HEMATOCRIT 25.3 % (35.4-49); HEMOGLOBIN 7.8 GM/dL (11.7-16.9); MCH 30.7 pg (25.7-33.7); MCHC 30.9 g/dl (32.0-35.9); MEAN CELL VOLUME 99.4 fl (80-96); MEAN PLT VOLUME 8.6 fl (7.5-11.1); PLATELET COUNT 218 10^3/uL (134-434); RBC 2.55 M/mm3 (4.00-5.60); RDW 20.8 % (11.9-15.9); WHITE BLOOD COUNT 13.6 K/mm3 (4.0-10.0)
[2023-11-18 07:43] LABS: POTASSIUM 4.1 mmol/L (3.5-5.1)
[2023-11-18 07:49] LABS: ALBUMIN 2.2 g/dl (3.4-5.0); BLOOD UREA NITROGEN 89.6 mg/dL (7-18); CALCIUM 8.9 mg/dL (8.5-10.1)
[2023-11-18 07:52] LABS: PHOSPHOROUS 2.3 mg/dL (2.5-4.9)
[2023-11-18 07:53] LABS: CREATININE 1.2 mg/dL (0.55-1.3)
[2023-11-18 07:54] LABS: BILIRUBIN,TOTAL 0.3 mg/dL (0.2-1); TOT PROT 5.8 g/dl (6.4-8.2)
[2023-11-18 08:50] LABS: ANISOCYTOSIS 1+; MACROCYTOSIS 0
[2023-11-18] MEDS: NAPH,MB-DB/K PH,MBDB POWDER PACKET PO ONE (09:19)
[2023-11-18] MEDS: MIDODRINE HCL 5 MG TABLET PO SCH (11:09)
[2023-11-18] MEDS: VANCOMYCIN 500 MG in DEXTROSE 5%-WATER - 100 ML IVPB ONE (15:19)
[2023-11-18] MEDS: VANCOMYCIN 500 MG in DEXTROSE 5%-WATER 100 ML IVPB ONE (15:19)
[2023-11-19 06:57] LABS: HEMATOCRIT 25.3 % (35.4-49); HEMOGLOBIN 7.9 GM/dL (11.7-16.9); MCHC 31.2 g/dl (32.0-35.9); MEAN CELL VOLUME 99.3 fl (80-96); MEAN PLT VOLUME 8.4 fl (7.5-11.1); PLATELET COUNT 255 10^3/uL (134-434); RBC 2.55 M/mm3 (4.00-5.60); RDW 21.5 % (11.9-15.9); WHITE BLOOD COUNT 16.5 K/mm3 (4.0-10.0)
[2023-11-19 07:17] LABS: POTASSIUM 3.9 mmol/L (3.5-5.1)
[2023-11-19 07:25] LABS: CALCIUM 8.4 mg/dL (8.5-10.1)
[2023-11-19 07:26] LABS: ALBUMIN 2.2 g/dl (3.4-5.0); BLOOD UREA NITROGEN 76.5 mg/dL (7-18); MAGNESIUM 1.8 mg/dL (1.8-2.4)
[2023-11-19 07:28] LABS: CREATININE 1.1 mg/dL (0.55-1.3)
[2023-11-19 07:30] LABS: BILIRUBIN,TOTAL 0.4 mg/dL (0.2-1); TOT PROT 6.1 g/dl (6.4-8.2)
[2023-11-19 08:43] LABS: ANISOCYTOSIS 2+; MACROCYTOSIS 0
[2023-11-19] MEDS: AMINO ACIDS/PROTEIN HYDROLYS 30 ML LIQUID.PKT GT SCH (09:35)
[2023-11-19] MEDS ORDERED: POLYETHYLENE GLYCOL (HEALTHYLAX) 3350 17 GM PACKET GT PRN (12:07)
[2023-11-19] MEDS: VANCOMYCIN 500 MG in DEXTROSE 5%-WATER - 100 ML IVPB ONE (15:00)
[2023-11-19] MEDS: PIPERACILLIN/TAZOB 3.375 GM 3.375 GM in DEXTROSE 5%-WATER - 50 ML IVPB SCH (16:30)
[2023-11-19] MEDS: DEXTROSE 5%-WATER - 1,000 ML IV SCH (17:04)
[2023-11-19] MEDS ORDERED: CHLORHEXIDINE GLUCONATE 4% CLEANSER FOR DECOLONIZATION TP SCH (22:00)
[2023-11-19] MEDS ORDERED: MEROPENEM 1 GM in DEXTROSE 5%-WATER 100 ML IVPB SCH (22:00)
[2023-11-19] MEDS: PANTOPRAZOLE SODIUM 40 MG VIAL IVPUSH SCH (22:57)
[2023-11-19] MEDS: levETIRAcetam 500 MG/5 ML INJECTION VIAL IVPB SCH (22:57)
[2023-11-20] MEDS: MEROPENEM 1 GM in DEXTROSE 5%-WATER 100 ML IVPB SCH (02:34)
[2023-11-20] MEDS: LEVOTHYROXINE NA 75 MCG TABLET (FP) GT SCH (06:07)
[2023-11-20] MEDS: ASCORBIC ACID 500 MG/5 ML UNIT DOSE CUP GT SCH (10:52)
[2023-11-20] MEDS: MIDODRINE HCL 5 MG TABLET PO SCH (10:52)
[2023-11-20] MEDS: CYANOCOBALAMIN 1,000 MCG TABLET (FP) GT SCH (10:52)
[2023-11-20] MEDS: AMINO ACIDS/PROTEIN HYDROLYS 30 ML LIQUID.PKT GT SCH (10:52)
[2023-11-20] MEDS: FOLIC ACID 1 MG TABLET (FP) GT SCH (10:53)
[2023-11-20] MEDS: FAMOTIDINE 20 MG/2.5 ML ORAL LIQUID PEG SCH (10:53)
[2023-11-20 11:48] LABS: HEMATOCRIT 19.7 % (35.4-49); MCH 30.9 pg (25.7-33.7); MCHC 29.9 g/dl (32.0-35.9); MEAN CELL VOLUME 103.3 fl (80-96); MEAN PLT VOLUME 8.5 fl (7.5-11.1); PLATELET COUNT 226 10^3/uL (134-434); RBC 1.91 M/mm3 (4.00-5.60); RDW 21.8 % (11.9-15.9)
[2023-11-20 11:53] LABS: HEMOGLOBIN 5.9 GM/dL (11.7-16.9)
[2023-11-20 12:13] LABS: BLOOD UREA NITROGEN 80.6 mg/dL (7-18)
[2023-11-20 12:14] LABS: ALBUMIN 2.2 g/dl (3.4-5.0); CALCIUM 8.9 mg/dL (8.5-10.1)
[2023-11-20 12:15] LABS: MAGNESIUM 1.9 mg/dL (1.8-2.4)
[2023-11-20 12:18] LABS: BILIRUBIN,TOTAL 0.7 mg/dL (0.2-1); CREATININE 1.3 mg/dL (0.55-1.3); PHOSPHOROUS 3.2 mg/dL (2.5-4.9); TOT PROT 6.1 g/dl (6.4-8.2)
[2023-11-20 12:30] LABS: ANISOCYTOSIS 1+; MACROCYTOSIS 1+
[2023-11-20 13:10] LABS: HEMATOCRIT 25.9 % (35.4-49); HEMOGLOBIN 8.1 GM/dL (11.7-16.9); MCH 30.6 pg (25.7-33.7); MCHC 31.4 g/dl (32.0-35.9); MEAN CELL VOLUME 97.7 fl (80-96); MEAN PLT VOLUME 8.4 fl (7.5-11.1); PLATELET COUNT 248 10^3/uL (134-434); RBC 2.65 M/mm3 (4.00-5.60); RDW 21.2 % (11.9-15.9); WHITE BLOOD COUNT 14.1 K/mm3 (4.0-10.0)
[2023-11-20] MEDS: SCOPOLAMINE HYDROBROMIDE 1 PATCH PATCH.TD72 TD SCH (22:06)
[2023-11-21 08:30] LABS: HEMATOCRIT 24.8 % (35.4-49); HEMOGLOBIN 7.9 GM/dL (11.7-16.9); MCH 31.8 pg (25.7-33.7); MEAN CELL VOLUME 99.3 fl (80-96); MEAN PLT VOLUME 8.5 fl (7.5-11.1); PLATELET COUNT 206 10^3/uL (134-434); RBC 2.49 M/mm3 (4.00-5.60); RDW 21.4 % (11.9-15.9); WHITE BLOOD COUNT 11.7 K/mm3 (4.0-10.0)
[2023-11-21] MEDS: AMINO ACIDS/PROTEIN HYDROLYS 30 ML LIQUID.PKT GT SCH (17:43)
[2023-11-22] MEDS: ALBUTEROL SO4 2.5/IPRATROPIUM 0.5 INH SOL 3 ML VIAL.NEB. NEB PRN (21:35)
[2023-11-23] MEDS: levETIRAcetam 500 MG TABLET (FP) PO SCH (09:01)
[2023-11-23] MEDS: FUROSEMIDE 40 MG/4 ML INJECTABLE VIAL IVPUSH ONE ×2 (13:02→14:42)
[2023-11-23] MEDS: MINERAL OIL/PET HY-PHL TOPICAL OINTMENT 454 GM JAR TP SCH (13:34)
[2023-11-24 09:14] LABS: HEMATOCRIT 22.4 % (35.4-49); HEMOGLOBIN 7.3 GM/dL (11.7-16.9); MCH 31.5 pg (25.7-33.7); MCHC 32.4 g/dl (32.0-35.9); MEAN CELL VOLUME 97.2 fl (80-96); PLATELET COUNT 237 10^3/uL (134-434)
[2023-11-24 09:53] LABS: BILIRUBIN,TOTAL 0.4 mg/dL (0.2-1); BLOOD UREA NITROGEN 65.2 mg/dL (7-18); CALCIUM 8.4 mg/dL (8.5-10.1); CREATININE 1.1 mg/dL (0.55-1.3); POTASSIUM 3.5 mmol/L (3.5-5.1); TOT PROT 5.7 g/dl (6.4-8.2)
[2023-11-24 10:32] LABS: ANISOCYTOSIS 2+; MACROCYTOSIS 0
[2023-11-25] MEDS ORDERED: MEROPENEM 1 GM VIAL (RESTRICTED TO ID) IVPB ONE (01:05)
[2023-11-25] MEDS ORDERED: PIPERACILLIN/TAZOBACTAM 3.375 GM VIAL IVPB ONE (01:05)
[2023-11-25 10:54] LABS: BASO % 0.5 % (0-2.0); EOS % 2.1 % (0-4.5); HEMATOCRIT 24.2 % (35.4-49); MCH 31.7 pg (25.7-33.7); MCHC 32.8 g/dl (32.0-35.9); MEAN CELL VOLUME 96.6 fl (80-96); MEAN PLT VOLUME 8.3 fl (7.5-11.1); MONO % 8.2 % (3.8-10.2); NEUT % 80.2 % (42.8-82.8); PLATELET COUNT 253 10^3/uL (134-434); RBC 2.51 M/mm3 (4.00-5.60); RDW 20.8 % (11.9-15.9); WHITE BLOOD COUNT 7.3 K/mm3 (4.0-10.0)
[2023-11-25 11:18] LABS: POTASSIUM 3.4 mmol/L (3.5-5.1)
[2023-11-25 11:25] LABS: CALCIUM 8.4 mg/dL (8.5-10.1)
[2023-11-25 11:26] LABS: ALBUMIN 2.1 g/dl (3.4-5.0); BLOOD UREA NITROGEN 52.1 mg/dL (7-18)
[2023-11-25 11:30] LABS: BILIRUBIN,TOTAL 0.4 mg/dL (0.2-1)
[2023-11-25] MEDS: MEROPENEM 1 GM in DEXTROSE 5%-WATER 100 ML IVPB SCH (15:37)
[2023-11-25] MEDS: DOXYCYCLINE HYCLATE 100 MG CAPSULE PO SCH (17:27)
[2023-11-26] MEDS: DEXTROSE 5%-WATER - 1,000 ML IV SCH (03:56)
[2023-11-26 09:55] LABS: BASO % 0.3 % (0-2.0); EOS % 1.2 % (0-4.5); HEMATOCRIT 24.5 % (35.4-49); HEMOGLOBIN 7.8 GM/dL (11.7-16.9); LYMPH % 8.8 % (8-40); MEAN CELL VOLUME 96.8 fl (80-96); MONO % 6.8 % (3.8-10.2); NEUT % 82.9 % (42.8-82.8); PLATELET COUNT 288 10^3/uL (134-434); RBC 2.53 M/mm3 (4.00-5.60); RDW 20.1 % (11.9-15.9); WHITE BLOOD COUNT 8.1 K/mm3 (4.0-10.0)
[2023-11-26 10:27] LABS: POTASSIUM 3.8 mmol/L (3.5-5.1)
[2023-11-26 10:30] LABS: ALBUMIN 2.1 g/dl (3.4-5.0); BLOOD UREA NITROGEN 52.6 mg/dL (7-18); CALCIUM 9.1 mg/dL (8.5-10.1)
[2023-11-26 10:34] LABS: BILIRUBIN,TOTAL 0.5 mg/dL (0.2-1); PHOSPHOROUS 3.8 mg/dL (2.5-4.9); TOT PROT 6.2 g/dl (6.4-8.2)
[2023-11-26] MEDS: MIDODRINE HCL 5 MG TABLET PO SCH (15:17)
[2023-11-27 10:20] LABS: BASO % 0.7 % (0-2.0); EOS % 1.8 % (0-4.5); HEMATOCRIT 23.6 % (35.4-49); HEMOGLOBIN 7.6 GM/dL (11.7-16.9); MCH 31.5 pg (25.7-33.7); MCHC 32.4 g/dl (32.0-35.9); MEAN CELL VOLUME 97.2 fl (80-96); MEAN PLT VOLUME 8.2 fl (7.5-11.1); MONO % 6.3 % (3.8-10.2); NEUT % 79.2 % (42.8-82.8); PLATELET COUNT 271 10^3/uL (134-434); RBC 2.43 M/mm3 (4.00-5.60); RDW 20.1 % (11.9-15.9); WHITE BLOOD COUNT 5.9 K/mm3 (4.0-10.0)
[2023-11-27 10:43] LABS: POTASSIUM 3.7 mmol/L (3.5-5.1)
[2023-11-27 10:50] LABS: ALBUMIN 2.1 g/dl (3.4-5.0); BLOOD UREA NITROGEN 52.6 mg/dL (7-18); CALCIUM 8.8 mg/dL (8.5-10.1)
[2023-11-27 10:52] LABS: BILIRUBIN,TOTAL 0.4 mg/dL (0.2-1); TOT PROT 6.3 g/dl (6.4-8.2)
[2023-11-27 10:53] LABS: CREATININE 1.1 mg/dL (0.55-1.3)
[2023-11-28 10:40] LABS: BASO % 0.4 % (0-2.0); EOS % 1.6 % (0-4.5); HEMATOCRIT 22.1 % (35.4-49); HEMOGLOBIN 7.2 GM/dL (11.7-16.9); LYMPH % 15.3 % (8-40); MCH 31.6 pg (25.7-33.7); MCHC 32.4 g/dl (32.0-35.9); MEAN CELL VOLUME 97.6 fl (80-96); MEAN PLT VOLUME 7.9 fl (7.5-11.1); MONO % 7.7 % (3.8-10.2); PLATELET COUNT 272 10^3/uL (134-434); RBC 2.27 M/mm3 (4.00-5.60); RDW 19.6 % (11.9-15.9); WHITE BLOOD COUNT 6.2 K/mm3 (4.0-10.0)
[2023-11-28 10:41] VITALS: RESP 18
[2023-11-28 11:38] LABS: POTASSIUM 3.9 mmol/L (3.5-5.1)
[2023-11-28 11:40] LABS: ALBUMIN 2.1 g/dl (3.4-5.0)
[2023-11-28 11:41] LABS: BLOOD UREA NITROGEN 66.5 mg/dL (7-18)
[2023-11-28 11:44] LABS: CREATININE 1.1 mg/dL (0.55-1.3); PHOSPHOROUS 3.7 mg/dL (2.5-4.9)
[2023-11-28 11:45] LABS: BILIRUBIN,TOTAL 0.4 mg/dL (0.2-1); TOT PROT 6.2 g/dl (6.4-8.2)
[2023-11-28 14:54] VITALS: BP 98/64; PULSE 70; TEMP 98.8
[2023-11-28] MEDS: BISACODYL 10 MG SUPP.RECT PR ONE (17:46)
== END 2023-11-28 18:42 | disposition home or self-care (01) | DRG 870 ==
LOC: JER 01:05 → JERBED 05:38 → JICU 19:21 → J6W 11-19 20:56 → J5S 11-27 10:14
PROVIDERS: ADMIT Internal Medicine; ATTEND Internal Medicine
PROC: 5A1955Z Respiratory Ventilation, Greater than 96 Consecutive Hours (ICD-10-PCS; principal; 2023-11-12)
DX: A41.89 Other specified sepsis (principal); E43 Unspecified severe protein-calorie malnutrition; L89.154 Pressure ulcer of sacral region, stage 4; J18.9 Pneumonia, unspecified organism; R65.21 Severe sepsis with septic shock; J96.21 Acute and chronic respiratory failure with hypoxia; R53.2 Functional quadriplegia; I60.9 Nontraumatic subarachnoid hemorrhage, unspecified; N17.9 Acute kidney failure, unspecified; N39.0 Urinary tract infection, site not specified; N13.30 Unspecified hydronephrosis; D64.9 Anemia, unspecified; N21.0 Calculus in bladder; N18.9 Chronic kidney disease, unspecified; E03.9 Hypothyroidism, unspecified; B96.29 Other Escherichia coli [E. coli] as the cause of diseases classified elsewhere; N40.0 Benign prostatic hyperplasia without lower urinary tract symptoms; Z85.51 Personal history of malignant neoplasm of bladder; Z85.528 Personal history of other malignant neoplasm of kidney; Z86.718 Personal history of other venous thrombosis and embolism; Z68.25 Body mass index [BMI] 25.0-25.9, adult; Z90.5 Acquired absence of kidney; Z93.0 Tracheostomy status
CPT/HCPCS: 0241U-QW; 36415; 36600; 70450-TC; 71045-TC-FY; 71250-TC; 76705-TC; 76775-TC; 76856-TC; 80053; 81003; 82272; 82803; 82962; 83036; 83605; 83735; 83880; 84100; 84484; 85025; 85027; 85610; 85730; 86704; 86803; 86850; 86900; 86901; 87040; 87070; 87086; 87186; 87205; 87340; 87517; 87899; 93005; 93010; 93306-TC; 94002; 94640; 99291; G0480; J0131